=== PATIENT | female | born 1995 | race Caucasian/White ===

== ENCOUNTER 2018-08-27 02:31 | Emergency (ER) | payer OTHER ==
--- OUTSIDE RECORDS SUMMARY | 2018-08-27 02:40 | XMS REPORT | Continuity of Care Document ---
:1995 External Reference #:[id number] Author Name Naya Avila CNM Address [address] [place] [address] Care Team Providers Name Role Phone Leanne Huang MD Care Team Information Nurse Intern Unavailable Payers Type Date Identification Numbers Payment Provider Subscriber Policy Number: [id number] [facility] Babs Olivia PayID: [id number] [facility] [address] [place] [id number] Advance Directives Description No Information Available Problems Description No Information Family History Date Family Member(s) Problem(s) Comments Father A&W Mother A&W First Sister A&W Second Sister A&W Paternal Grandfather due to [place] () Paternal Grandmother due to Multiple Sclerosis () Maternal Grandfather A&W Maternal Grandmother A&W Social History Type Date Description Comments Sex Unknown Education Highest level completed, Bachelor's Degree Marital Status Lives With Pets 1 dog Occupation Screenplay Writer Tobacco Use Start: Unknown Never Smoked Cigarettes ETOH Use Does Not Drink Alcohol Recreational Drug Use Does Not Use Drugs STD's No STD History Allergies, Adverse Reactions, Alerts Description No Information Medications Medication Date Status Form Strength Qnty SIG Indications Ordering Provider 08/03/ Active Capsules 27-0.8-250 30caps take one/ Nyaa Multivitamin 2019 mg day. may Maccarald Plus Dha substitute , CNM any pnv w/ dha. Medications Administered in Office Medication Date Status Form Strength Qnty SIG Indications Ordering Provider Injection Rho Administered Injection Naya (D) Immune 019 Maccarald, Globulin, CNM Human, One Dose Package Immunizations Description No Information Available Vital Signs Date Vital Result Comment 08/09/2018 11:14am BP Systolic 108 mmHg BP Diastolic 68 mmHg Body Temperature 97.8 F Height 66.25 inches 5'6.25" Weight 160.00 lb BMI (Body Mass Index) 25.6 kg/m2 Last Menstrual Period [id number] 08/03/2018 8:08am BP Systolic 118 mmHg BP Diastolic 70 mmHg Height 66.25 inches 5'6.25" Weight 160.00 lb BMI (Body Mass Index) 25.6 kg/m2 Last Menstrual Period [id number] Results Test Date Facility Test Result H/L Range Note Laboratory test 08/09/2018 [facility] Gardnerella/Y SEE RESULT 1 [place] [address] east: Vaginal BELOW [phone] Dna Urine Culture And 08/09/2018 [facility] Urine Culture SEE RESULT 2 [place] [address] BELOW [phone] Type And Screen 08/03/2018 [facility] [place] [address] Type [phone] Antibody Screen NEGATIVE 1 SEE RESULT BELOW Name: BABS OLIVIA : [address]: Naya Avila CNM Acct: [id number] Unit: [id number] AGE: 22 Location: [facility] Re08/09/18 SEX: F Status: REG REF SPEC: [id number] KATIE: 08/09/18-[address] [facility] [address]: Naya Avila CNM REQ: [id number] RECD: 08/09/18 STATUS: COMP _ SOURCE: VAGINAL SPDES: ORDERED: Lynette,Yeast DNA COMMENTS: [id number] Would you like to order Trichomonas Vaginalis testing? No Procedure Result Reported Site Gardnerella/Yeast: Vaginal DNA Final 08/10/18- 1030 ML Organism 1 Negative Gardnerella Organism 2 Negative Breana The presence of G. vaginalis, although suggestive, is not diagnostic for bacterial vaginosis. Results should be interpreted in conjuction with other clinical and laboratory data available. Women with vaginal discharge should be evaluated for risk factors of cervicitis and pelvic inflammatory disease, toxic shock syndrome (S.aureus), and if present, evaluated for organisms not included in this assay such as N. gonorrhoeae, C. trachomatis, Mobiluncus, Mycoplasma and/or Prevotella. Mixed infections may occur. The performance of this test on patient specimens collected during or immediately after antimicrobial therapy is unknown. The presence or absence of Breana species, or G. vaginalis cannot be used as a test for therapeutic success or failure. * - Main Lab . END OF REPORT DEPARTMENT OF PATHOLOGY, [address] [place] [address] Baldo Diez M.D. Director [facility] # [id number] 2 SEE RESULT BELOW Name: BABS OLIVIA : [address]: Naya Avila CNM Acct: [id number] Unit: [id number] AGE: 22 Location: [facility] Re08/09/18 SEX: F Status: REG REF SPEC: [id number] KATIE: 08/09/181137 SUBM DR: Naya Avila CNM REQ: [id number] RECD: 08/09/18 STATUS: COMP _ SOURCE: URINE SPDESC: ORDERED: Urine Culture COMMENTS: [id number] Urine Source: Random Procedure Result Reported Site Urine Culture Final 08/10/18- 1306 ML No Growth (<1,000 CFU/mL) * ML - Main Lab . END OF REPORT DEPARTMENT OF PATHOLOGY, [address] [place] [address] Baldo Diez M.D. Director [facility] # [id number] Procedures Date Code Description Status 08/03/2018 11002 OB Ultrasound First Trimester Completed Encounters Description No Information Available Plan of Treatment Future Appointment(s):09/10/2018 2:00 pm - Cyn Ariza CNM at [facility] Axanjg6705/2019 1:30 pm - Ultrasounds at [facility]08/03/2018 - Naya Avila, [id number] with inconclusive viability, not applicable or unspecified
--- NOTE | 2018-08-27 02:56 | ED ---
- HPI Summary HPI Summary: A 22 y/o F who is 9 weeks presents to ED with c/o suprapubic abd cramping onset a week ago and worsening greatly today. The pain radiates into her back. She states having some vaginal bleeding with the abd pain a week ago. The bleeding is less than a normal menstrual period, but it soaked her underwear and then was spotting. She is denies vaginal bleeding tonight. She goes to a [facility] practice in the area. She had an U/S at 6 weeks that confirmed an in uterus , heart beat. Patient states her health is good otherwise. This is her first . - History of Current Complaint Chief Complaint: EDOBProblems Stated Complaint: ABD PAIN Time Seen by Provider: 08/27/18 02:53 Hx Obtained From: Patient, Family/Access Services Librarian - Chief Complaint: Pain Onset/Duration: Started Hours Ago, Atraumatic, Still Present Timing: Constant Current Severity: Severe Pain Intensity: 8 - out of 10 Location of Pain: Radiates to: - back, Suprapubic Character: Cramping Associated Signs and Symptoms: Positive: Back Pain - radiating from abd pain, Vaginal Bleeding or Discharge - resolved - Assessment Hx Now: Yes - Allergies/Home Medications Allergies/Adverse Reactions: Allergies Allergy/AdvReac Type Severity Reaction Status Date / Time Sulfa (Sulfonamide Allergy Hives Verified 08/27/18 02:35 Antibiotics) PMH/Surg Hx/FS Hx/Imm Hx Previously Healthy: Yes Opthamlomology History: Denies: Hx Legally Blind EENT History: Denies: Hx Deafness Neurological History: Denies: Hx Dementia Infectious Disease History: No Infectious Disease History: Denies: Traveled Outside the [place] in Last 30 Days - Family History Known Family History: Positive: Cardiac Disease, Diabetes Negative: Hypertension - Social History Occupation: Employed Full-time Lives: With Family Review of Systems Positive: Abdominal Pain - cramping Positive: discharge - vaginal bleeding, resolved Musculoskeletal: Other - pos: back pain All Other Systems Reviewed And Are Negative: Yes Physical Exam - Summary Physical Exam Summary: Appearance: Well-appearing, Well-nourished, lying in bed comfortably Skin: Warm, dry, no obvious rash Eyes: sclera anicteric, no conjunctival pallor ENT: mucous membranes moist, pharynx appears normal Neck: Supple, nontender Respiratory: Clear to auscultation, no signs of respiratory distress Cardiovascular: Normal S1, S2. No murmurs. Normal distal pulses in tibial and radial bilaterally. Abdomen: Soft, nontender, normal active bowel sounds present Musculoskeletal: Normal, Strength/ROM Intact Neurological: A&Ox3, awake and alert, mentation is normal, speech is fluent and appropriate Psychiatric: affect is normal, does not appear anxious or depressed - Physical Exam Triage Information Reviewed: Yes Vital Signs Reviewed: Yes Diagnostics - Vital Signs Vital Signs Temp Pulse Resp BP Pulse Ox 08/27/18 02:34 98.9 F 81 16 125/69 98 - Laboratory Result Diagrams: 08/27/18 02:49 08/27/18 02:49 Lab Statement: Any lab studies that have been ordered have been reviewed, and results considered in the medical decision making process. Re-Evaluation - Re-Evaluation 1 Re-Evaluation Time: 03:55 Change: Unchanged Comment: Discussing UA results with pt and plan to D/C. Course/Dx - Course Course Of Treatment: Pt is a 22 y/o F who is 9 weeks presenting with c/ o suprapubic abd cramping onset a week ago and worsening greatly today. The pain radiates into her back. She states having some vaginal bleeding with the abd pain a week ago, but denies vaginal bleeding tonight. She goes to a [facility] in the area. She had an U/S at 6 weeks that confirmed an intrauterine , with a heart beat. Patient states her health is good otherwise. This is her first . An attempt at bedside screening ultrasonography was technically inadequate. I was unable to visualize the uterus with any certainty. She does say that her pain appears to be improving spontaneously. She is Rh-, but given the lack of bleeding I'm going to hold off on RhoGAM. I think after a short period of observation, the patient can be safely discharged home to follow up with her trapper animal. UA shows 2+ leukocyte esterase, 1+ WBC, squamous epithelia present. - Diagnoses Provider Diagnoses: Urinary tract infection affecting Discharge - Sign-Out/Discharge Documenting (check all that apply): Patient Departure - D/C - Discharge Plan Condition: Stable Disposition: HOME Prescriptions: Cephalexin CAP* [Keflex CAP*] 500 mg PO TID #20 cap Patient Education Materials: Threatened Miscarriage (ED), Urinary Tract Infection in (ED) Referrals: Simeon Hogan MD [Medical Doctor] - 1 Day - Billing Disposition and Condition Condition: STABLE Disposition: Home - Attestation Statements Document Initiated by Mihaelaibe: Yes Documenting Scribe: Дмитрий Rivas Provider For Whom Scribe is Documenting (Include Credential): Dr. Gagandeep London MD Scribe Attestation: IДмитрий, scribed for Dr. Gagandeep London MD on 08/27/18 at 0528. Scribe Documentation Reviewed: Yes Provider Attestation: The documentation as recorded by the Дмитрий lizarraga accurately reflects the service I personally performed and the decisions made by me, Dr. Gagandeep London MD Status of Scribe Document: Viewed
[2018-08-27 02:57] LABS: ABS Basophils 0.1 10^3/ul (0-0.2); ABS Eosinophils 0.1 10^3/ul (0-0.6); ABS Lymphocytes 2.8 10^3/ul (1.0-4.8); ABS Monocytes 0.5 10^3/ul (0-0.8); ABS Nucleated RBC 0 10^3/ul; Eosinophil % 1.2 %; Hematocrit 36 % (35-47); Lymphocyte % 29.5 %; Mean Corpuscular HGB Conc 34 g/dl (31-36); Mean Corpuscular Hemoglobin 29 pg (27-31); Mean Corpuscular Volume 86 fL (80-97); Mean Platelet Volume 8.8 fL (7.4-10.4); Nucleated Red Blood Cells % 0; Platelet Count 146 10^3/ul (150-450); Red Cell Distribution Width 14 % (10.5-15); White Blood Count 9.5 10^3/ul (3.5-10.8)
[2018-08-27 03:14] LABS: Albumin 3.9 g/dL (3.2-5.2); Albumin/Globulin Ratio 1.5 (1-3); BUN/Creatinine Ratio 15.3 (8-20); Calcium 9.2 mg/dL (8.6-10.3); EGFR African American 151.5 (>60); EGFR Non-African American 125.2 (>60); Globulin 2.6 g/dL (2-4); Potassium 3.8 mmol/L (3.5-5.0); Total Bilirubin 0.2 mg/dL (0.2-1.0); Total Protein 6.5 g/dL (6.4-8.9)
[2018-08-27 03:38] LABS: Urine Appearance Cloudy; Urine Bacteria Absent (Absent); Urine Bilirubin Negative (Negative); Urine Blood Negative (Negative); Urine Color Yellow; Urine Glucose Negative (Negative); Urine Ketones Negative (Negative); Urine Nitrite Negative (Negative); Urine Protein Negative (Negative); Urine Red Blood Cell Absent (Absent); Urine Specific Gravity 1.016 (1.010-1.030); Urine Squamous Epithelial Cell Present (Absent); Urine Urobilinogen Negative (Negative); Urine White Blood Cell 1+(6-10/hpf) (Absent)
[2018-08-27] MEDS ORDERED: Cephalexin CAP* 500 MG PO ONE (03:52)
[2018-08-27 04:30] VITALS: BP 118/66
== END 2018-08-27 04:13 | disposition home or self-care (01) ==
LOC: ED 02:31
DX: O23.41 Unspecified infection of urinary tract in pregnancy, first trimester (principal); Z3A.01 Less than 8 weeks gestation of pregnancy; Z88.2 Allergy status to sulfonamides
CPT/HCPCS: 36415; 80053; 81003; 81015; 84702; 85025; 86850; 86870; 86880; 86900; 86901; 87086; 99282; A9270-GY

== ENCOUNTER 2019-03-26 10:26 | Inpatient (IN) | payer OTHER ==
[2019-03-26] MEDS ORDERED: Buffered Lidocaine 1% SYRIN* 1 ML/SYRINGE INTRADERM ONE (11:17)
[2019-03-26] MEDS ORDERED: Lactated Ringers 1000 ML Bag* 1,000 ML IV ONE ×2 (11:17→21:20)
--- NOTE | 2019-03-26 11:28 | HP ---
General Information - Reason for Visit Scheduled induction of labor for prolonged latent labor at 40 0/7 weeks gestation - General Information Maternal Age: 23 Grav: 1 Para: 0 SAB: 0 IEA: 0 Estimated Due Date: 03/26/19 Determined By: LMP Maternal Blood Type and Rh: A Negative - Results this Serology/RPR Result: Non-Reactive Rubella Result: Immune HBsAg Result: Negative HIV Result: Negative GBS Culture Result: Negative Past Medical History Delivery History: See Records - Primigravida Pertinent Past Medical History: See Records - depression/ anxiety, endometriosis, scoliosis Pertinent Past Surgical History: See Records - laparoscopy ( endometriosis), tonsillectomy Pertinent Family History: Non-Contributory - Antepartal Records Antepartal Records: Reviewed, Uncomplicated Review of Systems Constitutional: Comfortable CV Complaint: No Respiratory: Shortness of Breath: No Gastrointestinal: No Nausea/Vomiting, Normal Bowel Movement Genitourinary: No Dysuria, No Bleeding, No Leaking Fluid Musculoskeletal: No Epigastric Pain, Contractions Neurological: No Headache, No Visual Changes Movement: Normal Exam Allergies/Adverse Reactions: Allergies Sulfa (Sulfonamide Antibiotics) Allergy (Verified 03/22/19 17:25) Hives T-98.7, P-109. R-18, BP- 125/74, O2-100% - Measurements Height: 5 ft 7 in Weight: 108.862 kg Weight in lbs: 240.861710 Body Mass Index (BMI): 37.5 Pre- Weight: 74.843 kg Weight Gained This : 75 lbs and 0 ozs - Exam Breast: Breast Exam Deferred CVA: No CVA Tenderness Extremities: Edema - trace pedal edema Heart: Normal Rhythm/Heart Sounds HEENT: No Significant Findings Lungs: Clear Bilaterally Rectal: Rectal Exam Deferred Reflexes: DTR 2+ Thyroid: No Thyromegaly - Abdominal Exam Abdomen Exam: Non-Tender, Fundal Height Consistent with Dates - Ultrasound/Biophysical Profile Ultrasound Status: Not Done Targeted Exam Findings See L&D Outpatient Visit Provider Note for Findings: N/A Estimated Weight: 7.5# Cervical Exam: 3cm Effacement: 80% Station: -1 Presenting Part: Vertex Membrane Status: Intact Bleeding/Discharge: None EFM Findings - External Monitor Findings Baseline Heart Rate: 145 External Monitor Findings: Accelerations Present, No Pattern of Variable or Late Decelerations, Variability Moderate Contractions: Irregular, Mild Assessment/Plan - Assessment 23 year old at 40 0/7 weeks gestation with favorable cervix, here for elective induction of labor for prolonged latent labor, no evidence of acidemia, membranes intact. - Plan Plan: Induction, Admit - Anticipate Vaginal Delivery - Date/Time of Admission Date of Admission: 03/26/19 Time of Admission: 11:15
[2019-03-26] MEDS ORDERED: Oxytocin in LR* 20 UNITS/1,000 ML BAG IVPB SCH (12:00)
[2019-03-26] MEDS ORDERED: Lactated Ringers 1000 ML Bag* 1,000 ML IV SCH ×3 (12:00→22:00)
[2019-03-26 12:53] LABS: Urine Benzodiazepine Screen None Detected (None Detect); Urine Opiates Screen None Detected (None Detect)
[2019-03-26 13:13] LABS: ABS Lymphocytes 1.5 10^3/ul (1.0-4.8); ABS Monocytes 0.6 10^3/ul (0-0.8); ABS Neutrophils 6.7 10^3/ul (1.5-7.7); Eosinophil % 0.4 %; Hematocrit 35 % (35-47); Hemoglobin 11.6 g/dL (12.0-16.0); Lymphocyte % 16.5 %; Mean Corpuscular HGB Conc 33 g/dL (31-36); Mean Corpuscular Hemoglobin 27 pg (27-31); Mean Corpuscular Volume 83 fL (80-97); Mean Platelet Volume 10.8 fL (7.4-10.4); Platelet Count 122 10^3/uL (150-450); Red Blood Count 4.25 10^6 /uL (3.70-4.87); Red Cell Distribution Width 14 % (10-15); White Blood Count 8.8 10^3/uL (3.5-10.8)
--- NOTE | 2019-03-26 14:07 | PN ---
Progress Note - Progress Note Date of Service: 03/26/19 SOAP: Subjective: Pt still comfortable, feels like ctx may be getting stronger. Walking in room, visiting with guests. Objective: Pitocin at 6 mu/min FHR: Baseline 140, moderate variability, + accels, no decels UCs: mild, Q 2-4 minutes Membranes intact BP: 122/69 Assessment: Pt not yet in active labor. No evidence of acidemia. Membranes intact. Plan: Continue Pitocin augmentation. Consider AROM.
--- NOTE | 2019-03-26 16:46 | PN ---
Progress Note - Progress Note Date of Service: 03/26/19 SOAP: Subjective: Pt reports ctx feel stronger although still manageable. Reports active FM. Objective: Cervix: 4cm/ 90%/ 0 station AROM performed to clear fluid FHR: Baseline 140/ moderate variability/ + accels/ no decels UCs: Q 3 minutes, mild to moderate BP: 106/47 Pitocin at 16 mu/min Assessment: Pt making cervical change, although slow. Not yet in active labor. No evidence of acidemia. Plan: AROM performed with pt consent to clear fluid. Continue Pitocin augmentation. Continue EFM.
--- NOTE | 2019-03-26 18:34 | PN ---
Progress Note - Progress Note Date of Service: 03/26/19 SOAP: Subjective: Pt feeling much more uncomfortable, breathing through ctx. Sitting on ball, providing counter pressure. Objective: FHR: Baseline 135/ moderate variability/ + accels/ no decels UCs: 2-3 minutes Temp: 97.7 Pitocin at 16 mu/min Fluid clear Assessment: Pt appears to be getting into active labor. No evidence of acidemia or chorioamnionitis. Plan: Pitocin decreased to 14. Labor support and comfort measures. Nitrous oxide, tub , or epidural as desired for pain relief. Anticipate .
--- NOTE | 2019-03-26 19:15 | PN ---
Progress Note - Progress Note Date of Service: 03/26/19 Note: Pt requests nitrous oxide for pain relief. FHR Category I. Pitocin reduced to 6 mu/min. UCs every 1-2 minutes prior to reduction in Pitocin rate. Nitrous oxide initiated. Pt coping very well, and mother at bedside, very supportive.
[2019-03-26] MEDS ORDERED: OBEPIDURAL* 250 ML EPIDURAL ONE (20:23)
[2019-03-26] MEDS ORDERED: Lidocaine 2% w/ EPI 1:200,000* 20 ML SDV VIAL ONE (21:06)
[2019-03-26] MEDS ORDERED: Sodium Citrate/Citric Acid* 15 ML UDC PO PRN (21:20)
[2019-03-26] MEDS ORDERED: Famotidine TAB* 20 MG PO PRN (21:20)
[2019-03-26] MEDS ORDERED: Lactated Ringers 1000 ML Bag* 500 ML IV PRN ×2 (21:20)
[2019-03-26] MEDS ORDERED: Phenylephrine 40 MCG/ML SYRINGE IV PUSH PRN ×2 (21:20)
[2019-03-26] MEDS ORDERED: OBEPIDURAL* 250 ML EPIDURAL SCH (22:00)
--- NOTE | 2019-03-26 22:14 | PN ---
Progress Note - Progress Note Date of Service: 03/26/19 SOAP: Subjective: Pt became increasingly uncomfortable. She used the nitrous oxide with good relief for a while, then requested and received an epidural when ctx became more intense. Currently resting comfortably with epidural. and mother at bedside. Objective: FHR: Baseline 140 moderate variability, positive accelerations, isolated late deceleration UCs: 4-6 minutes BP: 114/61 Temp: 98.2 Fluid clear Cervix: 7 cm/ 100%/ +1/ vtx Assessment: Pt making good progress. No evidence of acidemia or chorioamnionitis. Plan: Pitocin was discontinued while pt was awaiting epidural placement. Will restart at 2 mu/ min, titrate as needed. Anticipate .
--- NOTE | 2019-03-27 00:38 | PN ---
Progress Note - Progress Note Date of Service: 03/27/19 Note: Pt pushing effectively with ctx. FHR shows no sign of acidemia, no evidence of chorioamnionitis.
[2019-03-27] MEDS ORDERED: Ibuprofen TAB* 600 MG ONE (02:41)
[2019-03-27] MEDS ORDERED: Witch Hazel PAD* JAR TOPICAL PRN (02:48)
[2019-03-27] MEDS ORDERED: Dibucaine 1% 28.35 GM TUBE PR PRN (02:48)
[2019-03-27] MEDS ORDERED: Glycerin ADULT SUPP PR PRN (02:48)
[2019-03-27] MEDS ORDERED: Lactated Ringers 1000 ML Bag* 1,000 ML IV SCH (03:00)
[2019-03-27] MEDS ORDERED: Oxytocin in LR* 20 UNITS/1,000 ML BAG IVPB SCH (03:00)
--- NOTE | 2019-03-27 06:59 | PROCNOTE ---
[facility] OB: Delivery Note - Delivery A Date of : 03/27/19 Time of : 01:54 Power Sex: Male Weight at : 3.965 kg Score 1 Minute: 9 Score 5 Minutes: 9 Gestational Age in Weeks and Days at Delivery: 40 Weeks and 1 Days Delivery Method: Spontaneous Vaginal Labor: Spontaneous Did Patient attempt ?: N/A, No Previous Amniotic Fluid: Clear Estimated Blood Loss: 400 Anesthesia/Analgesia: CEI for Labor Delivered By: Naya Avila - Nursery Level of Nursery: Regular/Bedside - Perineum Perineal Injury: 2nd Degree Perineal Repair: By Delivering Practioner - Events Delivery Events of Note: Pitocin During Labor - Additional Delivery Notes Additional Delivery Notes: Pt arrived to L&D for elective induction at 40 0/7 weeks gestation for prolonged latent labor with favorable cervix. Induction initiated with Pitocin. Pt made slow but steady progress until AROM performed to clear fluid, after which labor began to increase in intensity and speed of dilation. Pt continued to make good progress, using nitrous oxide for pain relief before eventually requesting and receiving an epidural with good pain relief. Eventually pt reached full dilation and spontaneous urge to push. Pt coached on pushing with steady progress. Eventually brought to , followed by slow, controlled delivery of the head. Shoulders followed easily and infant placed on maternal abdomen with vigorous cry and HR> 100. dried and stimulated. Placenta soon delivered with gentle cord traction, spontaneous and baljeet, after which time Pitocin increased to 250 cc/ hr. Bleeding remained stable. Inspection of the perineum revealed small second degree perineal laceration as well as right hemostatic labial abrasion. Perineal laceration repaired using layers of absorbable suture with good resulting hemostasis and tissue approximation. Infant and mother stable at this time. Anticipate normal course.
[2019-03-27] MEDS: Docusate CAP* 100 MG PO SCH ×3 (09:29→20:25)
[2019-03-27] MEDS: Ibuprofen TAB* 600 MG PO PRN ×3 (09:29→22:01)
[2019-03-27] MEDS: Acetaminophen TAB* 325 MG PO PRN ×2 (14:52→20:24)
[2019-03-28] MEDS: Ibuprofen TAB* 600 MG PO PRN (05:42)
[2019-03-28] MEDS: Acetaminophen TAB* 325 MG PO PRN (05:42)
[2019-03-28 07:20] VITALS: BP 107/61
[2019-03-28 07:42] LABS: ABS Basophils 0.1 10^3/ul (0-0.2); ABS Eosinophils 0.1 10^3/ul (0-0.6); ABS Lymphocytes 2.6 10^3/ul (1.0-4.8); ABS Monocytes 0.6 10^3/ul (0-0.8); ABS Neutrophils 8.2 10^3/ul (1.5-7.7); Eosinophil % 0.7 %; Hematocrit 24 % (35-47); Hemoglobin 8.1 g/dL (12.0-16.0); Lymphocyte % 22.7 %; Mean Corpuscular HGB Conc 33 g/dL (31-36); Mean Corpuscular Hemoglobin 28 pg (27-31); Mean Corpuscular Volume 83 fL (80-97); Mean Platelet Volume 10.1 fL (7.4-10.4); Nucleated Red Blood Cells % 0.1; Platelet Count 89 10^3/uL (150-450); Red Blood Count 2.92 10^6 /uL (3.70-4.87); Red Cell Distribution Width 14 % (10-15); White Blood Count 11.5 10^3/uL (3.5-10.8)
[2019-03-28] MEDS ORDERED: Ferrous Gluconate TAB* 324 MG TAB PO SCH (09:00)
[2019-03-28] MEDS: Docusate CAP* 100 MG PO SCH (09:34)
[2019-03-28] MEDS ORDERED: RHO D Immune Globulin (HUMAN)* 300 MCG = 1,500 I.U. INJ IM ONE (09:42)
== END 2019-03-28 11:35 | disposition home or self-care (01) | DRG 560 ==
LOC: MCHOBOUT 10:26 → MCHOB 11:17
PROVIDERS: ADMIT Midwife; ATTEND Midwife
PROC: 4A1HXCZ Monitoring of Products of Conception, Cardiac Rate, External Approach (ICD-10-PCS; 2019-03-26)
PROC: 10907ZC Drainage of Amniotic Fluid, Therapeutic from Products of Conception, Via Natural or Artificial Opening (ICD-10-PCS; 2019-03-26)
PROC: 3E033VJ Introduction of Other Hormone into Peripheral Vein, Percutaneous Approach (ICD-10-PCS; 2019-03-26)
PROC: 10E0XZZ Delivery of Products of Conception, External Approach (ICD-10-PCS; principal; 2019-03-27)
PROC: 0KQM0ZZ Repair Perineum Muscle, Open Approach (ICD-10-PCS; 2019-03-27)
PROC: 0UQMXZZ Repair Vulva, External Approach (ICD-10-PCS; 2019-03-27)
DX: O63.9 Long labor, unspecified (principal); Z37.0 Single live birth; O70.1 Second degree perineal laceration during delivery; O76 Abnormality in fetal heart rate and rhythm complicating labor and delivery; O90.81 Anemia of the puerperium; Z3A.40 40 weeks gestation of pregnancy; Z88.2 Allergy status to sulfonamides; Z67.11 Type A blood, Rh negative
CPT/HCPCS: 36415; 80307; 85025; 85060; 86850; 86900; 86901; A9270-GY

== ENCOUNTER 2019-06-21 17:49 | Emergency (ER) | payer OTHER ==
--- OUTSIDE RECORDS SUMMARY | 2019-06-21 17:55 | XMS REPORT | Continuity of Care Document ---
:1995 External Reference #:[id number] Author Name Babak Casiano JR, DO Address [address] [place] [address], [facility] [place] [address] Problems Active Problems Provider Date Primigravida Naya Avila CNM Onset: 08/22/2018 Abnormal granulation tissue Leanne Huang MD Onset: 06/20/2019 Social History Type Date Description Comments Sex Unknown Tobacco Use Start: Unknown Never Smoked Cigarettes Smoking Status Reviewed: 06/20/19 Never Smoked Cigarettes ETOH Use Alcohol Use Prior To 1 drink/week. Stopped with Recreational Drug Use Does Not Use Drugs Allergies, Adverse Reactions, Alerts Active Allergies Reaction Severity Comments Date Sulfa Hives Moderate 08/22/2018 Medications Active Medications SIG Qnty Indications Ordering Date Provider Fioricet Take one capsule prn 5caps aBbak Casiano 06/20/2019 Ha. CATALINA DO 50-300-40mg Capsules Estrace apply 0.5g cream 85gm Naya 05/21/2019 0.1mg/GM intravaginally each RENNY Avila Cream night for 2 week, then twice weekly take one/ day. december 27cap Naya 08/03/2018 Multivitamin Plus substitute any pnv w/ RENNY Avila Dha dha. 27-0.8-250mg Capsules History Medications Clindamycin HCL take one by mouth 14caps Naya Avila 05/09/2019 - 300mg twice a day for 7 CNM 06/13/2019 Capsules days Dibucaine for external use 1tube Renetta Sharma CNM 03/30/2019 - 1% Ointment only. apply to 06/19/2019 affected area 1-4 times per day as needed Medications Administered in Office Medication SIG Qnty Indications Ordering Provider Date Injection Rho (Rupa) Immune Hilaria Wang MD 01/03/2019 Globulin, Human, One Dose Package Injection Injection Rho (D) Immune Naya Avila CNM 08/03/2018 Globulin, Human, One Dose Package Injection Immunizations CPT Code Status Date Vaccine Lot # [id number] Given 01/03/2019 Tetnus, Diptheria Toxoids And Acellular Pertussis, [id number] PT > 7Yrs Old [address] Given 09/10/2018 Influenza Vaccine Quadrivalent Preser/Antibiotic [id number] Free Im Use Vital Signs Date Vital Result Comment 06/20/2019 10:24am BP Systolic 138 mmHg BP Diastolic 76 mmHg Height 66 inches 5'6" Weight 189.00 lb BMI (Body Mass Index) 30.5 kg/m2 Last Menstrual Period [id number] 1 Parity 1 06/13/2019 8:14am BP Systolic 128 mmHg BP Diastolic 80 mmHg Height 66 inches 5'6" Weight 191.00 lb BMI (Body Mass Index) 30.8 kg/m2 Last Menstrual Period [id number] 1 Parity 1 Results Test Acquired Date Facility Test Result H/L Range Note Laboratory test 05/08/2019 [facility] Cytology SEE RESULT [address] [place] [address] BELOW [phone] Laboratory test 05/08/2019 [facility] Gardnerella/Ye SEE RESULT [address] [place] [address] ast: Vaginal BELOW [phone] Dna Herpes Simplex 05/08/2019 [facility] Herpes [place] [address] [phone] HSV 1 PCR Negative Negative HSV 2 PCR Negative Negative 3 Herpes Simplex PCR 05/08/2019 [facility] [place] [address] [phone] HSV 1 PCR Negative Negative HSV 2 PCR Negative Negative 4 Varicella Zoster 05/08/2019 [facility] Varicella Zoster VAGINAL PCR, [place] [address] Source [phone] Varicella Zoster Result Negative Negative 5 Urine Culture 03/22/2019 [facility] Urine Culture SEE RESULT 6, 7 [place] [address] BELOW Sensitivities [phone] Urine Drug SCR 03/22/2019 [facility] Urine None None ED [facility] [place] [address] Amphetamine Detected Detect [phone] Screen Urine Barbiturates Screen None Detected None Detect Urine Benzodiazepine Screen None Detected None Detect Urine Cannabinoids Screen None Detected None Detect Urine Cocaine Screen None Detected None Detect Urine Opiates Screen None Detected None Detect Urine Phencyclidine Screen None Detected None Detect 8 Urinalysis Profile 03/22/2019 [facility] [place] [address] [phone] Urine Appearance Cloudy Urine Specific Banning 1.020 Normal 1.010-1.030 Urine pH 6.0 Normal 5-9 Urine Urobilinogen Negative Negative Urine Ketones Negative Negative Urine Protein Negative Negative Urine Leukocytes 3+ Abnormal Negative Urine Blood Negative Negative * * Abnormal Negative 9 Urine Nitrite Negative Negative Urine Bilirubin Negative Negative Urine Glucose 2+(150 mg/dL) Abnormal Negative Urine White Blood Cell 3+(>20/hpf) Abnormal Absent Urine Red Blood Cell Absent Absent Urine Bacteria Absent Absent Urine Squamous Epithelial Cell Present Abnormal Absent Laboratory test 03/22/2019 [facility] Antibody Identification D [address] [place] [address] [phone] Antibody Id Autocontrol 0 Direct Antiglobulin Test NEGATIVE Type And Screen 03/22/2019 [facility] Patient [place] [address] [phone] Antibody Screen POSITIVE CBC Auto 03/22/2019 [facility] White Blood 8.7 10^3/uL Normal 3.5-10.8 [place] [address] Count [phone] Red Blood Count 4.00 10^6/uL Normal 3.70-4.87 Hemoglobin 11.1 g/dL Low 12.0-16.0 Hematocrit 33 % Low 35-47 Mean Corpuscular Volume 83 fL Normal 80-97 Mean Corpuscular Hemoglobin 28 pg Normal 27-31 Mean Corpuscular HGB Conc 34 g/dL Normal 31-36 Red Cell Distribution Width 14 % Normal 10-15 Platelet Count 115 10^3/uL Low 150-450 Mean Platelet Volume 10.5 fL High 7.4-10.4 Abs Neutrophils 6.3 10^3/uL Normal 1.5-7.7 Abs Lymphocytes 1.7 10^3/uL Normal 1.0-4.8 Abs Monocytes 0.6 10^3/uL Normal 0-0.8 Abs Eosinophils 0.1 10^3/uL Normal 0-0.6 Abs Basophils 0.0 10^3/uL Normal 0-0.2 Abs Nucleated RBC 0.0 10^3/uL Granulocyte % 72.1 % Lymphocyte % 19.5 % Monocyte % 7.1 % Eosinophil % 0.9 % Basophil % 0.4 % Nucleated Red Blood Cells % 0.2 Urine Drug 03/20/2019 [facility] Urine None Detected None Detect [place] [address] Amphetamine Pain Clinic [phone] Screen Urine Barbiturates Screen None Detected None Detect Urine Benzodiazepine Screen None Detected None Detect Urine Cannabinoids Screen None Detected None Detect Urine Cocaine Screen None Detected None Detect Urine Opiates Screen None Detected None Detect Urine Phencyclidine Screen None Detected None Detect 11 Laboratory test 03/01/2019 [facility] Genital For GRP B SEE RESULT [address] [place] [address] Strep Only BELOW [phone] Tot Prot 24HR 01/30/2019 [facility] Urine Collection 24 [place] [address] Time OB [phone] Urine Total Volume OB 3000 mL Ur TP Concentration Obstetric 9 mg/dL Ur Tot Protein/24Hr Obstetric 270 mg/24Hr High 0-165 Comp Metabolic 01/29/2019 [facility] Sodium 136 mmol/L Normal 135-145 [place] [address] [phone] Potassium 4.2 mmol/L Normal 3.5-5.0 Chloride 105 mmol/L Normal 101-111 Co2 Carbon Dioxide 25 mmol/L Normal 22-32 Anion Gap 6 mmol/L Normal 2-11 Glucose 75 mg/dL Normal 70-100 Blood Urea Nitrogen 9 mg/dL Normal 6-24 Creatinine 0.55 mg/dL Normal 0.51-0.95 BUN/Creatinine Ratio 16.4 Normal 8-20 Calcium 9.0 mg/dL Normal 8.6-10.3 Total Protein 5.7 g/dL Low 6.4-8.9 Albumin 3.2 g/dL Normal 3.2-5.2 Globulin 2.5 g/dL Normal 2-4 Albumin/Globulin Ratio 1.3 Normal 1-3 Total Bilirubin 0.30 mg/dL Normal 0.2-1.0 Alkaline Phosphatase 99 U/L Normal 34-104 Alt 12 U/L Normal 7-52 Ast 15 U/L Normal 13-39 Egfr Non- 134.7 >60 Egfr 163.0 >60 13 Laboratory test 01/29/2019 [facility] Uric Acid 2.4 mg/dL Normal 2.3-6.6 [address] [place] [address] [phone] CBC With No Diff 01/29/2019 [facility] White 10.1 Normal 3.5- 10.8 [place] [address] Blood 10^3/uL [phone] Count Red Blood Count 3.73 10^6/uL Normal 3.70-4.87 Hemoglobin 11.1 g/dL Low 12.0-16.0 Hematocrit 33 % Low 35-47 Mean Corpuscular Volume 88 fL Normal 80-97 Mean Corpuscular Hemoglobin 30 pg Normal 27-31 Mean Corpuscular HGB Conc 34 g/dL Normal 31-36 Red Cell Distribution Width 13 % Normal 10-15 Platelet Count 148 10^3/uL Low 150-450 Mean Platelet Volume 10.5 fL High 7.4-10.4 Laboratory test 01/03/2019 [facility] Glucose 1 HR 126 mg/dL Normal 70-160 [address] [place] [address] Post [phone] Prandial CBC With No 01/03/2019 [facility] White Blood 10.8 Normal 3.5- 10.8 [place] [address] Count 10^3/uL [phone] Red Blood Count 3.75 10^6/uL Normal 3.70-4.87 Hemoglobin 11.4 g/dL Low 12.0-16.0 Hematocrit 34 % Low 35-47 Mean Corpuscular Volume 90 fL Normal 80-97 Mean Corpuscular Hemoglobin 30 pg Normal 27-31 Mean Corpuscular HGB Conc 34 g/dL Normal 31-36 Red Cell Distribution Width 13 % Normal 10-15 Platelet Count 141 10^3/uL Low 150-450 Mean Platelet Volume 10.5 fL High 7.4-10.4 Laboratory test finding 01/03/2019 [facility] AB Screen NEGATIVE [address] [place] [address] [phone] 1 SEE RESULT BELOW Name: BABS OLIVIA : [address]: Naya Avila [facility] Acct: [id number] Unit: [id number] AGE: 23 Location: [facility] Re05/08/19 SEX: F Status: REG REF SPEC: [id number] KATIE: 05/08/[address] [facility] [address]: Naya Avila [facility] REQ: [id number] RECD: 05/08/19 STATUS: SOUT _ ORDERED: TP IMAGE ANALYS COMMENTS: [id number] FINAL DIAGNOSIS Negative for Intraepithelial lesion or Malignancy SPECIMEN(S) RECEIVED A. Ectocervical/Endocervical CYTOLOGY ADEQUACY Specimen Adequacy: Satisfactory of evaluation Transformation zone component identified CYTOLOGY PATIENT INFORMATION Patient Information: HPV: Thin Layer Pap Test w/reflex to high risk HPV RNA testing when ASCUS Actual Specimen Date: 05/08/19 Last Menstrual Date: 06/19/18 Spec Date if unknown: unknown ?: N Post Menopausal?: N Hysterectomy?: N Previous Abnormal Pap Smears?:N Signed by and Reported on: ERNA Alicia (ASCP) 0226 This Pap test was evaluated with the assistance of the [employer]ona Test Imaging System. Due to cytologic findings at the programming equipment operator microscope, comprehensive manual rescreening by a Central Services Tech may be required. The Pap Smear is a screening test designed to aid in the detection of premalignant and malignant conditions of the uterine cervix. It is not a diagnostic procedure and should not be used as the sole means of detecting cervical cancer. Both false- positive and false- negative reports do occur. Depending on your risk status, a Pap smear should be obtained and evaluated every 1-3 years. END OF REPORT DEPARTMENT OF PATHOLOGY, [address] [place] [address] Baldo Diez M.D. Director [facility] # [id number] 2 SEE RESULT BELOW Name: BABS OLIVIA : [address]: Naya Avila CNM Acct: [id number] Unit: [id number] AGE: 23 Location: [facility] Re05/08/19 SEX: F Status: REG REF SPEC: [id number] KATIE: 05/08/[address] [facility] [address]: Naya Avila CNM REQ: [id number] RECD: 05/08/19 STATUS: COMP _ SOURCE: VAGINAL SPDESC: ORDERED: Lynette,Yeast DNA COMMENTS: [id number] Would you like to order Trichomonas Vaginalis testing? No Procedure Result Reported Site Gardnerella/Yeast: Vaginal DNA Final 05/09/19- 1249 ML Organism 1 POSITIVE GARDNERELLA Organism 2 Negative Breana The presence of [...] . END OF REPORT DEPARTMENT OF PATHOLOGY, [address] [place] [address] Baldo Diez M.D. Director [facility] # [id number] 3 ADDITIONAL INFORMATION This test has been modified from the debt collector's instructions. Its performance characteristics were determined by [facility] in a manner consistent with CLIA requirements. This test has not been cleared or approved by the U.S. Food and Drug Administration. Test Performed by: [facility] [place] [address] Fire Sprinkler Inspector: Tung Edmond M.D. Ph.D.; CLIA# [id number] 4 ADDITIONAL INFORMATION This test has been modified from the debt collector's instructions. Its performance characteristics were determined by [facility] in a manner consistent with CLIA requirements. This test has not been cleared or approved by the U.S. Food and Drug Administration. Test Performed by: [facility] [place] [address] Fire Sprinkler Inspector: Tung Edmond M.D. Ph.D.; CLIA# [id number] 5 ADDITIONAL INFORMATION This test was developed and its performance characteristics determined by [facility] in a manner consistent with CLIA requirements. This test has not been cleared or approved by the U.S. Food and Drug Administration. Test Performed by: [facility] [place] [address] Fire Sprinkler Inspector: Tung Edmond M.D. Ph.D.; CLIA# [id number] 6 Urine Source: Clean Catch 7 SEE RESULT BELOW Name: MIKEBABS : [address]: Brigid Alonzo [facility] Acct: [id number] Unit: [id number] AGE: 23 Location: [facility] Re03/22/19 SEX: F Status: DEP REF SPEC: [id number] KATIE: 03/22/[address]: Brigid Alonzo [facility] REQ: [id number] RECD: 03/22/19 STATUS: MELISSA KATZ DR: Deisy Primary Care Phys,NOPCP _ SOURCE: URINE SPDESC: ORDERED: Urine Culture Procedure Result Reported Site Urine Culture Final 03/23/19- 1619 ML No growth of clinically significant organisms * ML - Main Lab . END OF REPORT DEPARTMENT OF PATHOLOGY, [address] [place] [address] Baldo Diez M.D. Director [facility] # [id number] 8 The urine specimen was tested at the listed cutoffs: Drug class test level (ng/mL) Amphetamines 500 Barbiturates 200 Benzodiazepine metabolites 200 Cocaine metabolites 150 Cannabinoids 50 Opiates 300 Pcp 25 Specimen was received without chain of custody. Results should be used for medical purposes only. 9 *Ascorbic acid is present which may interfere with detection of blood. 10 Probably due to circulating Rhogam given. 11 The urine specimen was tested at the listed cutoffs: Drug class test level (ng/mL) Amphetamines 500 Barbiturates 200 Benzodiazepine metabolites 200 Cocaine metabolites 150 Cannabinoids 50 Opiates 300 Pcp 25 Specimen was received without chain of custody. Results should be used for medical purposes only. 12 SEE RESULT BELOW Name: BABS OLIVIA : [address]: Cyn Ariza CNM Acct: [id number] Unit: [id number] AGE: 23 Location: [facility] Re03/01/19 SEX: F Status: REG REF SPEC: [id number] KATIE: 03/01/19-[address] [facility] [address]: Cyn Ariza CNM REQ: [id number] RECD: 03/01/19 STATUS: COMP _ SOURCE: CER/VAG/RE SPDESC: ORDERED: Grp B Strp Scrn COMMENTS: [id number] QUERIES: Is Patient Penicillin Allergic? N Is patient penicillin allergic and/or sensitivities needed? N Provider Requisition # C77#[id number]_ Procedure Result Reported Site Group B Strep Culture Screen Final 03/03/19- 1322 ML Group B Strep Screen Negative * ML - Main Lab . END OF REPORT DEPARTMENT OF PATHOLOGY, [address] [place] [address] Baldo Diez M.D. Director [facility] # [id number] 13 Because ethnic data is not always readily available, this report includes an eGFR for both -Americans and non- Americans. The National Kidney Disease Education Program (NKDEP) does not endorse the use of the MDRD equation for patients that are not between the ages of 18 and 70, are , have extremes of body size, muscle mass, or nutritional status, or are non- or non-. According to the National Kidney Foundation, irrespective of diagnosis, the stage of the disease is based on the level of kidney function: Stage Description GFR(mL/min/1.73 m(2)) 1 Kidney damage with normal or decreased GFR 90 2 Kidney damage with mild decrease in GFR 60-89 3 Moderate decrease in GFR 30-59 4 Severe decrease in GFR 15-29 5 Kidney failure <15 (or dialysis) 14 [id number] 15 [id number] 16 [id number] Procedures Date Code Description Status 03/26/2019 25131 Obstetric Care Routine Completed 03/22/2019 27054 Non-Stress Test Completed 03/20/2019 37074 Non-Stress Test Completed 03/01/2019 79533 Echography Uterus Limited Completed 01/03/2019 04214 Injection Intramuscular Or Subcutaneous Completed Medical Devices Description No Information Available Encounters Type Date Location Provider Dx Diagnosis Office Visit 06/20/2019 10:15a [facility] Babak Casiano JR, DO R51 Headache M54.5 Low back pain Office Visit 06/13/2019 8:15a [facility] Office Leanne L92.9 Cameron Huang MD disorder of the skin, subcu, unsp Office Visit 03/20/2019 9:58a Delivery Cyn Ariza O47.1 False labor at or CN after 37 completed weeks of gestation Assessments Date Code Description Provider 06/20/2019 R51 Headache Babak Casiano JR, DO 06/20/2019 M54.5 Low back pain Babak Casiano JR, DO 06/13/2019 L92.9 Granulomatous disorder of the skin and Leanne Huang MD subcutaneous tissue, unspecified 05/08/2019 Z39.2 Encounter for routine follow-up Naya Avila CNM 03/26/2019 O80 Encounter for full-term uncomplicated Naya Avila CNM delivery 03/26/2019 Z39.0 Encounter for care and examination of Naya Avila CNM mother immediately after delivery 03/26/2019 Z37.0 Single live Naya Avila CNM 03/22/2019 Z34.03 Encounter for supervision of normal first Cyn Ariza CNM , third trimester 03/20/2019 O47.1 False labor at or after 37 completed weeks Cyn Ariza, CHASTITY of gestation 03/15/2019 Z34.03 Encounter for supervision of normal first Euniceeleanor Paez, CHASTITY , third trimester 03/08/2019 Z34.03 Encounter for supervision of normal first Cyn Ariza, CHASTITY , third trimester 03/01/2019 Z34.83 Encounter for suprvsn of normal , Cyn TayorafiCHASTITY third trimester 02/15/2019 Z34.03 Encntr for suprvsn of normal first preg, Cyn Ariza, CHASTITY third trimester 01/29/2019 Z34.03 Encntr for suprvsn of normal first preg, Brigid Alonzo, CHASTITY third trimester 01/18/2019 Z34.03 Encntr for suprvsn of normal first preg, Renetta Sharma, CHASTITY third trimester 01/03/2019 Z36.9 Encounter for screening, Simeon Hogan M.D. unspecified 01/03/2019 Z36.9 Encounter for screening, Laboratory unspecified 01/03/2019 Z34.03 Encntr for suprvsn of normal first preg, Hilaria Wang MD third trimester 01/03/2019 Z23 Encounter for immunization Hilaria Wang MD Plan of Treatment Future Appointment(s):06/26/2019 8:15 am - Leanne [facility] MD at [facility]06/20/2019 - Babak Casiano JR, DOR51 HeadacheComments:Will try Fioricet to see if TAVARES cycle can be abortedRecommend Fioricet at bedtime with single dose ofbenadryl to see if cycle can be brokenDiscussed risks/benefits of Fioricet while , discussed that active ingredients to pass through breast milk, but risk to baby is relatively though, though observation for somnolence is reasonableNeurology consult at pt's spyxxnzX57.5 Low back painComments:no evidence of traumapt with history of scoliosisf/u with PCP and/or chiropractor Functional Status Description No Information Available Mental Status Description No Information Available Referrals Description No Information Available
--- OUTSIDE RECORDS SUMMARY | 2019-06-21 17:55 | XMS REPORT | Continuity of Care Document ---
:1995 External Reference #:[id number] Author Name Leanne Huang MD (transmitted by agent of provider Samara Romero) Address [address] [place] [address] Problems Active Problems Provider Date Primigravida Naya Avila CNM Onset: 08/22/2018 Social History Type Date Description Comments Sex Unknown Tobacco Use Start: Unknown Never Smoked Cigarettes Smoking Status Reviewed: 06/13/19 Never Smoked Cigarettes ETOH Use Alcohol Use Prior To 1 drink/week. Stopped with Recreational Drug Use Does Not Use Drugs Allergies, Adverse Reactions, Alerts Active Allergies Reaction Severity Comments Date Sulfa Hives Moderate 08/22/2018 Medications Active Medications SIG Qnty Indications Ordering Date Provider Estrace apply 0.5g cream 85gm Naya 05/21/2019 0.1mg/GM intravaginally each Maccaromaira, CNM Cream night for 2 week, then twice weekly Dibucaine for external use 1tube Renetta Sharma, 03/30/2019 1% only. apply to CNM Ointment affected area 1-4 times per day as needed take one/ day. december 27cap Naya 08/03/2018 Multivitamin Plus substitute any pnv w/ [place] CNDonna Dha dha. 27-0.8-250mg Capsules History Medications Clindamycin HCL take one by 14caps Naya Avila CNM 05/09/2019 - 300mg mouth twice a 06/13/2019 Capsules day for 7 days Medications Administered in Office Medication SIG Qnty Indications Ordering Provider Date Injection Rho (D) Hilaria Gonzalez MD 01/03/2019 Globulin, Human, One Dose Package Injection Injection Rho (D) Immune Naya Avila CNM 08/03/2018 Globulin, Human, One Dose Package Injection Immunizations CPT Code Status Date Vaccine Lot # [id number] Given 01/03/2019 Tetnus, Diptheria Toxoids And Acellular Pertussis, [id number] PT > 7Yrs Old [address] Given 09/10/2018 Influenza Vaccine Quadrivalent Preser/Antibiotic [id number] Free Im Use Vital Signs Date Vital Result Comment 06/13/2019 8:14am BP Systolic 128 mmHg BP Diastolic 80 mmHg Height 66 inches 5'6" Weight 191.00 lb BMI (Body Mass Index) 30.8 kg/m2 Last Menstrual Period 4532265 1 Parity 1 05/08/2019 10:55am BP Systolic 116 mmHg BP Diastolic 70 mmHg Height 66 inches 5'6" Weight 195.00 lb BMI (Body Mass Index) 31.5 kg/m2 Last Menstrual Period 4581633 1 Parity 1 Results Test Acquired Date Facility Test Result H/L Range Note Laboratory test 05/08/2019 [facility] Cytology SEE RESULT [address] [place] [address] BELOW [phone] Laboratory test 05/08/2019 [facility] Gardnerella/Ye SEE RESULT [address] [place] [address] ast: Vaginal BELOW [phone] Dna Herpes Simplex 05/08/2019 [facility] Herpes [place] [address] [phone] HSV 1 PCR Negative Negative HSV 2 PCR Negative Negative 3 Herpes Simplex PCR 05/08/2019 [facility] [place] [address] [phone] HSV 1 PCR Negative Negative HSV 2 PCR Negative Negative 4 Varicella Zoster 05/08/2019 [facility] Varicella Zoster VAGINAL PCR, [place] [address] Source [phone] Varicella Zoster Result Negative Negative 5 Urine Culture 03/22/2019 [facility] Urine Culture SEE RESULT 6, 7 [place] [address] BELOW Sensitivities [phone] Urine Drug SCR 03/22/2019 [facility] Urine None None ED & [place] [address] Amphetamine Detected Detect [phone] Screen Urine Barbiturates Screen None Detected None Detect Urine Benzodiazepine Screen None Detected None Detect Urine Cannabinoids Screen None Detected None Detect Urine Cocaine Screen None Detected None Detect Urine Opiates Screen None Detected None Detect Urine Phencyclidine Screen None Detected None Detect 8 Urinalysis Profile 03/22/2019 [facility] [place] [address] [phone] Urine Appearance Cloudy Urine Specific Ramsey 1.020 Normal 1.010-1.030 Urine pH 6.0 Normal [...] Cell Present Abnormal Absent Laboratory test 03/22/2019 [facility] Antibody Identification D [address] [place] [address] [phone] Antibody Id Autocontrol 0 Direct Antiglobulin Test NEGATIVE Type And Screen 03/22/2019 [facility] Patient [place] [address] [phone] Antibody Screen POSITIVE CBC Auto 03/22/2019 [facility] White Blood 8.7 10^3/uL Normal 3.5-10.8 [place] [address] Count [phone] Red Blood Count 4.00 10^6/uL Normal 3.70-4.87 [...] Blood Cells % 0.2 Urine Drug 03/20/2019 [facility] Urine None Detected None Detect S[place] [address] Amphetamine Pain Clinic [phone] Screen Urine Barbiturates Screen None Detected None Detect Urine Benzodiazepine Screen None Detected None Detect Urine Cannabinoids Screen None Detected None Detect Urine Cocaine Screen None Detected None Detect Urine Opiates Screen None Detected None Detect Urine Phencyclidine Screen None Detected None Detect 11 Laboratory test 03/01/2019 [facility] Genital For GRP B SEE RESULT [address] [place] [address] Strep Only BELOW [phone] Tot Prot 24HR 01/30/2019 [facility] Urine Collection 24 [place] [address] Time OB [phone] Urine Total Volume OB 3000 mL Ur TP Concentration Obstetric 9 mg/dL Ur Tot Protein/24Hr Obstetric 270 mg/24Hr High 0-165 Comp Metabolic 01/29/2019 [facility] Sodium 136 mmol/L Normal 135-145 [place] [address] [phone] Potassium 4.2 mmol/L Normal 3.5-5.0 Chloride 105 [...] Egfr 163.0 >60 13 Laboratory test 01/29/2019 [facility] Uric Acid 2.4 mg/dL Normal 2.3-6.6 [address] [place] [address] [phone] CBC With No Diff 01/29/2019 [facility] White 10.1 Normal 3.5- 10.8 [place] [address] Blood 10^3/uL [phone] Count Red Blood Count 3.73 10^6/uL Normal [...] 10.5 fL High 7.4-10.4 Laboratory test 01/03/2019 [facility] Glucose 1 HR 126 mg/dL Normal 70-160 [address] [place] [address] Post [phone] Prandial CBC With No 01/03/2019 [facility] White Blood 10.8 Normal 3.5- 10.8 [place] [address] Count 10^3/uL [phone] Red Blood Count 3.75 10^6/uL Normal 3.70-4.87 [...] fL High 7.4-10.4 Laboratory test finding 01/03/2019 [facility] AB Screen NEGATIVE [address] [place], [place] [address] [phone] 1 SEE RESULT BELOW Name: BABS OLIVIA : [address]: Naya Avila CNM Acct: [id number] Unit: [id number] AGE: 23 Location: [facility] Re05/08/19 SEX: F Status: REG REF SPEC: [id number] KATIE: 05/08/[address] [facility] DR: Naya Avila [facility] REQ: [id number] RECD: 05/08/19 STATUS: SOUT _ ORDERED: TP IMAGE ANALYS COMMENTS: [id number] FINAL DIAGNOSIS Negative for Intraepithelial lesion or [...] by and Reported on: ERNA Alicia (ASCP) 5522 This Pap test was evaluated with the assistance of the eBrevia Test Imaging System. Due to cytologic findings at the chronograph operator microscope, comprehensive manual rescreening by a Unindentured Apprentice may be required. The Pap Smear is [...] years. END OF REPORT DEPARTMENT OF PATHOLOGY, [address] [place] [address] Baldo Diez M.D. Director [facility] # [id number] 2 SEE RESULT BELOW Name: BABS OLIVIA : [address]: Naya Avila CNM Acct: [id number] Unit: [id number] AGE: 23 Location: [facility] Re05/08/19 SEX: F Status: REG REF SPEC: [id number] KATIE: 05/08/191140 SUBM DR: Naya Avila CNM REQ: [id number] RECD: 05/08/19 STATUS: COMP _ SOURCE: VAGINAL SPDESC: ORDERED: Lynette,Yeast DNA COMMENTS: [id number] Would you like to order Trichomonas Vaginalis [...] for therapeutic success or failure. * - [facility] . END OF REPORT DEPARTMENT OF PATHOLOGY, [address] [place] [address] Baldo Diez M.D. Director [facility] # [id number] 3 ADDITIONAL INFORMATION This test has been modified from the director educational radio's instructions. Its performance characteristics were determined by [facility] in a manner consistent with CLIA requirements. This test has not been cleared or approved by the U.S. Food and Drug Administration. Test Performed by: [facility] [place] [address] Laboratory Analyst: Tung Edmond M.D. Ph.D.; CLIA# [id number] 4 ADDITIONAL INFORMATION This test has been modified from the director educational radio's instructions. Its performance characteristics were determined by [facility] in a manner consistent with CLIA requirements. This test has not been cleared or approved by the U.S. Food and Drug Administration. Test Performed by: [facility] [place] [address] Laboratory Analyst: Tung Edmond M.D. Ph.D.; CLIA# [id number] 5 ADDITIONAL INFORMATION This test was developed and its performance characteristics determined by [facility] in a manner consistent with CLIA requirements. This test has not been cleared or approved by the U.S. Food and Drug Administration. Test Performed by: [facility] [place] [address] Laboratory Analyst: Tung Edmond M.D. Ph.D.; CLIA# [id number] 6 Urine Source: Clean Catch 7 SEE RESULT BELOW Name: BABS OLIVIA : [address]: Brigid Alonzo CNM Acct: [id number] Unit: [id number] AGE: 23 Location: [facility] Re03/22/19 SEX: F Status: DEP REF SPEC: [id number] KATIE: 03/22/[address]: Brigid Alonzo [facility] REQ: [id number] RECD: 03/22/19 STATUS: MELISSA KATZ DR: Deisy Primary Care Phys,NOP _ SOURCE: URINE SPDESC: ORDERED: Urine Culture Procedure Result Reported Site Urine Culture Final 03/23/19- 1619 ML No growth of clinically significant organisms * ML - Main Lab . END OF REPORT DEPARTMENT OF PATHOLOGY, [address] [place] [address] Baldo Diez M.D. Director [facility] # [id number] 8 The urine specimen was tested at [...] [address]: Cyn Ariza CNM Acct: [id number] Unit: [id number] AGE: 23 Location: [facility] Re03/01/19 SEX: F Status: REG REF SPEC: [id number] KATIE: 03/01/[address]: Cyn Ariza CNM REQ: [id number] RECD: 03/01/19 STATUS: COMP _ SOURCE: CER/VAG/RE SPDESC: ORDERED: Grp B Strp Scrn COMMENTS: [id number] QUERIES: Is Patient Penicillin Allergic? N Is patient penicillin allergic and/or sensitivities needed? N Provider Requisition # [id number]_ Procedure Result Reported Site Group B Strep Culture Screen Final 03/03/19- 1322 ML Group B Strep Screen Negative * ML - [facility] Lab . END OF REPORT DEPARTMENT OF PATHOLOGY, [address] [place] [address] Baldo Diez M.D. Director [facility] # [id number] 13 Because ethnic data is not always [...] 5 Kidney failure <15 (or dialysis) 14 [id number] 15 [id number] 16 [id number] Procedures Date Code Description Status 03/26/2019 63674 Obstetric Care Routine Completed 03/22/2019 49296 Non-Stress Test Completed 03/20/2019 45766 Non-Stress Test Completed 03/01/2019 92504 Echography Uterus Limited Completed 01/03/2019 07954 Injection Intramuscular Or Subcutaneous Completed Medical Devices Description No Information Available Encounters Type Date Location Provider Dx Diagnosis Office Visit 03/20/2019 9:58a Delivery Cyn Ariza CNM O47.1 False labor at or after 37 completed weeks of gestation Assessments Date Code Description Provider 05/08/2019 Z39.2 Encounter for routine follow-up Naya [...] at or after 37 completed weeks Cyn Ariza CNM of gestation 03/15/2019 Z34.03 Encounter for supervision of normal first Eunice Paez CNM , third trimester 03/08/2019 Z34.03 Encounter for supervision of normal first Cyn Ariza CNM , third trimester 03/01/2019 Z34.83 Encounter for suprvsn of normal , Cyn Ariza CNM third trimester 02/15/2019 Z34.03 Encntr for suprvsn of normal first preg, Cyn Ariza CNM third trimester 01/29/2019 Z34.03 Encntr for suprvsn of normal first preg, Brigid Alonzo CNM third trimester 01/18/2019 Z34.03 Encntr for suprvsn of normal first preg, Renetta Sharma CNM third trimester 01/03/2019 Z36.9 Encounter for screening, Simeon Hogan M.D. unspecified 01/03/2019 Z36.9 Encounter for screening, Laboratory unspecified 01/03/2019 Z34.03 Encntr for suprvsn of normal first preg, Hilaria Wang MD third trimester 01/03/2019 Z23 Encounter for immunization Hilaria Wang MD Plan of Treatment No Information Available Functional Status Description No Information Available Mental Status Description No Information Available Referrals Description No Information Available
--- OUTSIDE RECORDS SUMMARY | 2019-06-21 17:55 | XMS REPORT | Continuity of Care Document ---
:1995 External Reference #:[id number] Author Name Viri Christensen N.P. (transmitted by agent of provider Natalie Nunez) Address [address] [place] [address], [place] [address] Problems Description No Information Available Social History Type Date Description Comments Sex Unknown ETOH Use Occasionally consumes alcohol Tobacco Use Start: Unknown Patient has never smoked Smoking Status Reviewed: 06/17/19 Patient has never smoked Exercise Type/Frequency Exercises regularly Allergies, Adverse Reactions, Alerts Active Allergies Reaction Severity Comments Date Sulfa Antibiotics Hives 06/17/2019 Medications Active Medications SIG Qnty Indications Ordering Provider Date 1 by mouth every Unknown Tablets day Immunizations Description No Information Available Vital Signs Date Vital Result Comment 06/17/2019 3:14pm Height 68 inches 5'8" Weight 191.00 lb Heart Rate 87 /min BP Systolic 113 mmHg BP Diastolic 69 mmHg O2 % BldC Oximetry 97 % BMI (Body Mass Index) 29.0 kg/m2 Last Menstrual Period 0730413 Results Description No Information Available Procedures Description No Information Available Medical Devices Description No Information Available Encounters Description No Information Available Assessments Date Code Description Provider 06/17/2019 R10.2 Pelvic and perineal pain Viri Christensen N.P. Plan of Treatment 06/17/2019 - Viri Christensen N.P.R10.2 Pelvic and perineal painComments:Consider seeing a computer specialist for post- work Linda Mota or Mine Fajardo.Continue PTContinue estrogen cream Functional Status Description No Information Available Mental Status Description No Information Available Referrals Description No Information Available
[2019-06-21 18:31] VITALS: BP 96/61
--- NOTE | 2019-06-21 18:43 | UC ---
Headache HPI - HPI Summary HPI Summary: Pt is 3 mo. post where she delivered vaginally after epidural. Since then pt. has esentially felt nearly daily headaches and back pain where epidural was. Pt. has assoc. ringing in ears, worsening headache when she bends over or coughs, and nausea. She is concerned about spinal fluid. she is nursing. She went to OB office last week and they did not think this was CSF related. - History Of Current Complaint Chief Complaint: UCHeadache Stated Complaint: HEADACHES Time Seen by Provider: 06/21/19 18:35 Hx Obtained From: Patient Onset/Duration: Gradual Onset Onset Of Symptoms: Gradual Pain Intensity: 4 Pain Scale Used: 0-10 Numeric Location of Headache: Occipital Aggravating Factor(s): Exertion, Position Change, Other - coughing Allevating Factor(s): Nothing - Allergies/Home Medications Allergies/Adverse Reactions: Allergies Allergy/AdvReac Type Severity Reaction Status Date / Time Sulfa (Sulfonamide Allergy Hives Verified 06/21/19 18:31 Antibiotics) Home Medications: Home Medications Aspirin/Acetaminophen/Caffeine [Excedrin Extra Strength Caplet] 1 each PO ONCE 06/21/19 [History Confirmed 06/21/19] PMH/Surg Hx/FS Hx/Imm Hx Previously Healthy: Yes Neurological History: Migraine - Surgical History Surgical History: Yes Surgery Procedure, Year, and Place: t&a, laperoscopy - Family History Known Family History: Positive: Cardiac Disease, Diabetes Negative: Hypertension - Social History Alcohol Use: Occasionally Substance Use Type: None Smoking Status (MU): Never Smoked Tobacco - Immunization History Most Recent Influenza Vaccination: None Most Recent Pneumonia Vaccination: never Review of Systems All Other Systems Reviewed And Are Negative: Yes Constitutional: Negative: Fever Eyes: Negative: Blurred Vision, Photophobia ENT: Negative: Nasal Discharge, Sinus Congestion Respiratory: Negative: Shortness Of Breath Gastrointestinal: Positive: Nausea. Negative: Vomiting Motor: Negative: Weakness Musculoskeletal: Positive: Other: - back pain Neurological: Positive: Headache. Negative: Weakness, Paresthesia, Numbness Psychological: Negative: Depressed Physical Exam Triage Information Reviewed: Yes Appearance: Well-Appearing Vital Signs: Initial Vital Signs Temp 98.2 F 06/21/19 18:23 Pulse 74 06/21/19 18:23 Resp 18 06/21/19 18:23 BP 96/61 06/21/19 18:23 Pulse Ox 99 06/21/19 18:23 Vital Signs Reviewed: Yes Eyes: Positive: Other: - PERRLA Neck: Positive: Supple. Negative: Nuchal Rigidity Respiratory: Positive: No respiratory distress Neurological: Positive: Alert Psychological: Positive: Normal Response To Family - partner Headache Course/Dx - Course Course Of Treatment: Subacute exertional headache that started after epidural/vaginal delivery of her first baby 3 MO. AGO. No neuro deficits today on exam, afebrile, good bp. in ddx is long and could be related to post sleep deprivation. she also has hx of migraines but she feels this is different. Although it is very rare for there to be a CSF leakage I think a leyva eval is warranted especially since there is a change in her typical HAs and that this worsens when she bends over or coughs. I explained that it would be extremely rare for this to be spinal fluid related. I recommend ED but also offered her to go to OB and speak w/ them once again. - Differential Dx/Diagnosis Differential Diagnosis/HQI/PQRI: Meningitis, Migraine, Tension Headache, Other Provider Diagnosis: Exertional headache Discharge ED - Sign-Out/Discharge Documenting (check all that apply): Patient Departure All imaging exams completed and their final reports reviewed: No Studies - Discharge Plan Condition: Good Disposition: HOME Patient Education Materials: Tension Headache (ED) Referrals: Naya Avila CNM [Certified Nurse Qm Nurse] - Additional Instructions: I recommend going to the Emergency Room for the rare chance this could be related to the epidural and spinal fluid. If not you MUST go to the OB office on Mon or Tues to have a discussion and work up for your headache. Again, there is a very rare chance of this being spinal fluid related headache. - Billing Disposition and Condition Condition: GOOD Disposition: Home
== END 2019-06-21 19:11 | disposition home or self-care (01) ==
LOC: UCEAST 17:49
DX: G44.84 Primary exertional headache (principal); Z88.2 Allergy status to sulfonamides; Z79.82 Long term (current) use of aspirin
CPT/HCPCS: 99211; G0463

== ENCOUNTER 2019-06-22 13:45 | Emergency (ER) | payer OTHER ==
--- NOTE | 2019-06-22 15:43 | ED ---
Headache - HPI Summary HPI Summary: This patient is a 23 year old female presenting to [facility] from urgent care with a chief complaint of migraine. She states the headache began post 3 months ago and has been increasing in severity over the last 3 weeks. She reports dizziness and back pain. The patient states she had an epidural with . She states the headache starts in the back of her head and radiates through to her eyes. She states she used to get migraines in high school but this does not feel the same. She said her headache is usually feeling better in the morning and when she lays down, and feels worse when she stands up and moves around, but the headache has not gone away. The patient has a Hx of scoliosis. The patient gave vaginally and this was her first . Medications reviewed. Allergies noted. - History Of Current Complaint Chief Complaint: EDHeadache Stated Complaint: MIGRAINE PER PT Time Seen by Provider: 06/22/19 15:29 Hx Obtained From: Patient Onset/Duration: Started weeks ago, Still Present Character: Migraine Location of Headache: Occipital - Allergies/Home Medications Allergies/Adverse Reactions: Allergies Allergy/AdvReac Type Severity Reaction Status Date / Time Sulfa (Sulfonamide Allergy Hives Verified 06/22/19 13:50 Antibiotics) Home Medications: Home Medications Butalb/Acetaminophen/Caffeine [[id number] [id number]] 1 tab PO DAILY PRN 06/22/19 [History Confirmed 06/22/19] Estradiol 3 applic VAGINAL WEEKLY 06/22/19 [History Confirmed 06/22/19] PMH/Surg Hx/FS Hx/Imm Hx Musculoskeletal History: Reports: Hx Scoliosis Sensory History: Denies: Hx Legally Blind, Hx Deafness Opthamlomology History: Denies: Hx Legally Blind Neurological History: Denies: Hx Dementia - Surgical History Surgery Procedure, Year, and Place: t&a, laperoscopy Infectious Disease History: No Infectious Disease History: Denies: Traveled Outside the [place] in Last 30 Days - Family History Known Family History: Positive: Cardiac Disease, Diabetes Negative: Hypertension - Social History Alcohol Use: Occasionally Substance Use Type: Reports: None Smoking Status (MU): Never Smoked Tobacco Review of Systems Positive: Other - Back pain Neurological: Other - Dizziness Positive: Headache All Other Systems Reviewed And Are Negative: Yes Physical Exam - Summary Physical Exam Summary: Constitutional: Well-developed, Well-nourished, Alert. (-) Distressed Skin: Warm, Dry HENT: Normocephalic; Atraumatic Eyes: Conjunctiva normal Neck: Musculoskeletal ROM normal neck. (-) JVD, (-) Stridor, (-) Tracheal deviation Cardio: Rhythm regular, rate normal, Heart sounds normal; Intact distal pulses. Radial pulses are 2+ and symmetric. (-) Murmur Pulmonary/Chest wall: Effort normal. (-) Respiratory distress, (-) Wheezes, (-) Rales Abd: Soft. (-) Tenderness, (-) Distension, (-) Guarding, (-) Rebound Musculoskeletal: (-) Edema Lymph: (-) Cervical adenopathy Neuro: Alert, Oriented x3, Strength normal, Cranial nerves II-XII are grossly intact. (-) Dysmetria, (-) Nystagmus, (-) Ataxia by finger to nose testing, (-) Sensory deficit. Psych: Mood and affect Normal Triage Information Reviewed: Yes Vital Signs On Initial Exam: Initial Vitals Temp Pulse Resp BP Pulse Ox 97.1 F 82 16 137/79 96 06/22/19 13:48 06/22/19 13:48 06/22/19 13:48 06/22/19 13:48 06/22/19 13:48 Vital Signs Reviewed: Yes Procedures - Sedation Patient Received Moderate/Deep Sedation with Procedure: No Diagnostics - Vital Signs Vital Signs Temp Pulse Resp BP Pulse Ox 06/22/19 13:48 97.1 F 82 16 137/79 96 - Laboratory Result Diagrams: 06/22/19 16:34 06/22/19 16:34 Lab Statement: Any lab studies that have been ordered have been reviewed, and results considered in the medical decision making process. - CT CTA Head CT Interpretation Completed By: Radiologist Summary of CT Findings: No acute intracranial abnormality. ED Provider has reviewed this report. Headache Course/Dx - Course Course Of Treatment: Patient is here with 1 month of a constant headache that originates in her occiput. Patient did liver her baby 3 months ago and has had chronic back pain since then. I do not think this represents a chronic CSF leak as that seems very atypical and history. However, patient has not been worked up for the cause of headache. Patient had blood performed just gross and remarkable. Patient is CTA of her head which is negative for any intracranial hemorrhage, mass, or cerebral venous thrombosis. Patient is given a headache cocktail with improvement in her headache but no sensation. Patient was given neurology for follow-up. - Diagnoses Provider Diagnoses: Headache Discharge ED - Sign-Out/Discharge Documenting (check all that apply): Patient Departure - Discharge - Discharge Plan Condition: Stable Disposition: HOME Patient Education Materials: Migraine Headache (ED) Referrals: Home Correa MD [Medical Doctor] - Additional Instructions: Follow up with Dr. Correa, Neurology. Drink large quantities of caffeine for your headache. Take medication your OBGYN prescribed. Follow up with your OBGYN in 1- 3 days. Come back with unbearable headache, weakness on one side of your body, inability to move your neck. - Billing Disposition and Condition Condition: STABLE Disposition: Home - Attestation Statements Document Initiated by Tash: Yes Documenting Scribe: Maxx Salazar Provider For Whom Tash is Documenting (Include Credential): Claude Whitfield MD Scribe Attestation: Maxx Wallace, scribed for Claude Whitfield MD on 06/22/19 at 1853. Scribe Documentation Reviewed: Yes Provider Attestation: The documentation as recorded by the Maxx lizarraga accurately reflects the service I personally performed and the decisions made by me, Claude Whitfield MD Status of Scribe Document: Viewed
[2019-06-22] MEDS ORDERED: NS 0.9% 1000 ML** 1,000 ML IV ONE (15:51)
[2019-06-22] MEDS ORDERED: Ketorolac INJ* 30 MG/ML 1 ML VIAL IV ONE (16:30)
[2019-06-22] MEDS ORDERED: PROCHLORPERAZINE INJ 5 MG/ML 2 ML VIAL IV ONE (16:31)
[2019-06-22] MEDS ORDERED: diPHENhydraMINE IV* 50 MG/ML 1 ml VIAL (BENADRYL) IV ONE (16:31)
[2019-06-22 16:39] LABS: ABS Eosinophils 0.1 10^3/ul (0-0.6); ABS Lymphocytes 2.1 10^3/ul (1.0-4.8); ABS Monocytes 0.4 10^3/ul (0-0.8); ABS Neutrophils 3.2 10^3/ul (1.5-7.7); Hematocrit 37 % (35-47); Hemoglobin 12.5 g/dL (12.0-16.0); Lymphocyte % 36.2 %; Mean Corpuscular HGB Conc 33 g/dL (31-36); Mean Corpuscular Hemoglobin 27 pg (27-31); Mean Corpuscular Volume 82 fL (80-97); Mean Platelet Volume 8.9 fL (7.4-10.4); Platelet Count 145 10^3/uL (150-450); Red Blood Count 4.57 10^6 /uL (3.70-4.87); Red Cell Distribution Width 15 % (10-15); White Blood Count 5.9 10^3/uL (3.5-10.8)
[2019-06-22 17:07] LABS: Albumin 4.3 g/dL (3.2-5.2); Anion Gap 5 mmol/L (2-11); CO2 Carbon Dioxide 26 mmol/L (22-32); Calcium 9.5 mg/dL (8.6-10.3); Chloride 106 mmol/L (101-111); Potassium 4.1 mmol/L (3.5-5.0); Sodium 137 mmol/L (135-145)
[2019-06-22 17:13] LABS: ALT 25 U/L (7-52); AST 25 U/L (13-39); Albumin/Globulin Ratio 1.5 (1-3); Alkaline Phosphatase 85 U/L (34-104); BUN/Creatinine Ratio 12.8 (8-20); Blood Urea Nitrogen 11 mg/dL (6-24); EGFR African American 97.3 (>60); EGFR Non-African American 80.4 (>60); Globulin 2.8 g/dL (2-4); Glucose 84 mg/dL (70-100); HCG Pregnancy < 0.60 mIU/mL; Total Protein 7.1 g/dL (6.4-8.9)
[2019-06-22] MEDS ORDERED: Iohexol 350* (CONTRAST) 500 ML MDV IV ONE (17:37)
[2019-06-22 18:46] VITALS: BP 110/63
== END 2019-06-22 18:46 | disposition home or self-care (01) ==
LOC: ED 13:45
DX: R51 Headache (principal); Z88.2 Allergy status to sulfonamides
CPT/HCPCS: 36415; 70496; 80053; 84702; 85025; 96361; 96374; 96375; 99283; J0780; J1200; J1885; Q9967

== ENCOUNTER 2022-08-31 13:33 | Inpatient (IN) ==
[2022-08-31] MEDS ORDERED: Buffered Lidocaine 1% SYRIN 1 ml INTRADERM ONE (14:16)
[2022-08-31] MEDS ORDERED: Lactated Ringers 1000 ml BAG 1,000 ML IV ONE ×2 (14:16→18:35)
[2022-08-31] MEDS ORDERED: Lactated Ringers 1000 ml BAG 1,000 ML IV SCH ×3 (15:00→21:00)
[2022-08-31 15:27] LABS: ABS Lymphocytes 1.5 10^3/ul (1.0-4.8); ABS Monocytes 0.5 10^3/ul (0-0.8); ABS Neutrophils 7.6 10^3/ul (1.5-7.7); Eosinophil % 0.3 %; Hematocrit 38 % (35-47); Hemoglobin 12.5 g/dL (12.0-16.0); Lymphocyte % 15.3 %; Mean Corpuscular HGB Conc 33 g/dL (31-36); Mean Corpuscular Hemoglobin 29 pg (27-31); Mean Corpuscular Volume 88 fL (80-97); Mean Platelet Volume 10.1 fL (7.4-10.4); Platelet Count 124 10^3/uL (150-450); Red Blood Count 4.32 10^6 /uL (3.70-4.87); Red Cell Distribution Width 16 % (10-15); White Blood Count 9.7 10^3/uL (3.5-10.8)
[2022-08-31 16:44] LABS: Urine Benzodiazepine Screen None Detected (None Detect); Urine Cannabinoids Screen None Detected (None Detect); Urine Opiates Screen None Detected (None Detect)
[2022-08-31] MEDS ORDERED: Lidocaine/Epinephrin 1.5%/200 5 ML AMP INJ ONE (17:38)
[2022-08-31] MEDS ORDERED: OBEPIDURAL (200 ML) 200 ML EPIDURAL ONE (17:39)
[2022-08-31] MEDS ORDERED: Sodium Citrate/Citric Acid LIQ 15 ML UDC PO PRN (18:35)
[2022-08-31] MEDS ORDERED: Phenylephrine 40 mcg/mL 10mL (400mcg) SYRINGE IV PUSH PRN ×2 (18:35)
[2022-08-31] MEDS ORDERED: OBEPIDURAL (200 ML) 200 ML EPIDURAL SCH (19:00)
[2022-08-31] MEDS ORDERED: Oxytocin in LR 20,000 MILLI.UNIT/1,000 ML BAG IV ONE (19:47)
[2022-08-31] MEDS ORDERED: Dibucaine 1% OINT 28.35 GM TUBE PR PRN (20:04)
[2022-08-31] MEDS ORDERED: Glycerin ADULT 2.4 gm SUPP PR PRN (20:04)
[2022-08-31] MEDS ORDERED: Witch Hazel PAD JAR TOPICAL PRN (20:04)
[2022-08-31] MEDS ORDERED: RHO D Immune Globulin (HUMAN) 300 MCG = 1,500 I.U. INJ IM PRN (20:04)
[2022-08-31] MEDS ORDERED: Oxytocin in LR 20,000 MILLI.UNIT/1,000 ML BAG IV SCH (20:15)
[2022-08-31] MEDS ORDERED: Varicella Virus Vaccine Live 0.5 ML VIAL SUBCUT ONE (23:04)
[2022-09-01 06:16] LABS: ABS Lymphocytes 1.7 10^3/ul (1.0-4.8); ABS Monocytes 0.9 10^3/ul (0-0.8); Eosinophil % 0.2 %; Hematocrit 32 % (35-47); Hemoglobin 10.4 g/dL (12.0-16.0); Lymphocyte % 13.6 %; Mean Corpuscular HGB Conc 33 g/dL (31-36); Mean Corpuscular Hemoglobin 29 pg (27-31); Mean Corpuscular Volume 87 fL (80-97); Mean Platelet Volume 9.5 fL (7.4-10.4); Platelet Count 112 10^3/uL (150-450); Red Blood Count 3.62 10^6 /uL (3.70-4.87); Red Cell Distribution Width 16 % (10-15); White Blood Count 12.7 10^3/uL (3.5-10.8)
[2022-09-01 16:37] VITALS: BP 107/56
== END 2022-09-01 20:40 | disposition home or self-care (01) | DRG 560 ==
LOC: MCHOBOUT 13:33 → MCHOB 14:14
PROVIDERS: ADMIT Midwife; ATTEND Midwife